=== PATIENT | male | born 1955 | race Caucasian/White ===

== ENCOUNTER 2024-07-28 07:04 | Day surgery (SDC) | payer OTHER, BC ==
[2024-07-24 13:27] LABS: Absolute Eosinophils 0.2 K/uL (0-0.5); Absolute Lymphocytes (CBC) 0.8 K/uL (0.7-4.9); Absolute Monocytes 1.2 K/uL (0.1-1.3); Absolute Neutrophil 8.6 K/uL (1.8-8.0); Basophils % 0.4 % (0-1.3); Eosinophils % 2.2 % (0-4.4); Hematocrit 40.3 % (39.6-49.0); Hemoglobin 13.7 g/dL (13.6-17.9); Lymphocytes % 7.2 % (15.3-44.8); MCH 30.8 pg (27.0-35.0); MCV 90.7 fL (80-100); MPV 7.6 fL (7.6-11.3); Monocytes % 10.8 % (3.3-12.3); Neutrophils % 79.4 % (41.7-73.7); Platelets 350 thou/uL (152-406); RBC Red Blood Cell Count 4.44 M/uL (4.33-5.43); Red Cell Distribution Width 14.9 % (12.1-15.2)
--- NOTE | 2024-07-24 13:40 | RAD REPORT ---
EXAMINATION: TWO VIEW CHEST XR CLINICAL INDICATION: Pre-op pending hernia repair TECHNIQUE: 2 views of the chest was performed. COMPARISON: No prior exam. FINDINGS: The lungs are well inflated and clear. The heart is upper limit of normal in size. No displaced fract ures evident. Right-sided port catheter tip in SVC. IMPRESSION: COPD is suspected without acute finding identified.
[2024-07-24 13:42] LABS: Anion Gap 6.1 mEq/L (5.0-15.0); Potassium 5.1 mEq/L (3.5-5.1)
--- NOTE | 2024-07-25 13:25 | EKG ---
Test Date: 2024-07-24 Test Time: 13:10:02 Receiver Dispatcher: MICHEL MEASUREMENT RESULTS: Intervals: Rate: 88 SD: 210 QRSD: 84 QT: 358 QTc: 433 Gail: P: 73 SD: 210 QRS: 68 T: 65 INTERPRETIVE STATEMENTS: Sinus rhythm with 1st degree AV block Otherwise normal ECG No previous ECG available for comparison Electronically Signed On 07-25-24 13:19:04 CDT by Yonathan Harrington
[2024-07-28] MEDS: Ringers Lactate 1,000 ML IV ONE (07:30)
[2024-07-28] MEDS ORDERED: FENTANYL CITR 100 MCG/2 ML ONE ×2 (08:17→09:39)
[2024-07-28] MEDS ORDERED: ROCURONIUM 50 MG/5 ML VIAL IV ONE ×2 (08:17→09:24)
[2024-07-28] MEDS ORDERED: LIDOCAINE 1% MPF 5 ML VIAL ONE (08:17)
[2024-07-28] MEDS ORDERED: MIDAZOLAM HCL 2 MG/2 ML INJ ONE (08:17)
[2024-07-28] MEDS ORDERED: propofoL 200 MG/20 ML VIAL IV ONE (08:17)
[2024-07-28] MEDS ORDERED: NEOSTIGMINE 1 MG/ML -10 ML VIAL ONE (08:17)
[2024-07-28] MEDS ORDERED: GLYCOPYRROLATE 0.2 MG/ML SYR ONE (08:17)
[2024-07-28] MEDS ORDERED: ONDANSETRON 4 MG/2 ML VIAL ONE (08:18)
[2024-07-28] MEDS ORDERED: KETOROLAC 30 MG/ML INJ ONE (08:18)
[2024-07-28] MEDS: CEFAZOLIN SODIUM 1 GM/VIAL ONE (08:50)
[2024-07-28] MEDS ORDERED: Mastisol Adhesive Liq ONE (09:45)
--- NOTE | 2024-07-28 10:02 | P.BOP ---
Preoperative diagnosis: tender right inguinal hernia Postoperative diagnosis: same Primary procedure: Laparoscopic repair of tender right inguinal hernia with mesh Science Interpreter: Deirdre Morrison ([place]) Estimated blood loss: <10cc Specimen: none Findings: RIH Anesthesia: General Complications: None Transferred to: Recovery Room Condition: Good
[2024-07-28] MEDS ORDERED: TAMSULOSIN 0.4 MG SR CAP ONE (11:04)
[2024-07-28 11:13] VITALS: BP 121/75; O2SAT 100
[2024-07-28 12:04] VITALS: TEMP 97
== END 2024-07-28 11:45 | disposition home or self-care (01) ==
LOC: OR 07:04
PROVIDERS: ATTEND Surgery
PROC: 0YU54JZ Supplement Right Inguinal Region with Synthetic Substitute, Percutaneous Endoscopic Approach (ICD-10-PCS; principal; 2024-07-28 08:30)
DX: K40.90 Unilateral inguinal hernia, without obstruction or gangrene, not specified as recurrent (principal)
CPT/HCPCS: 93005; 85025; 80048; 36415; 71046; 49650; J2704; J2710; J2003; J2250; J3010 ×2; J2405; J7120; J0690